=== PATIENT | male | born 1960 | race Hispanic/Latino ===

== ENCOUNTER 2018-06-08 14:13 | Outpatient (CLI) | payer BC ==
--- NOTE | 2018-06-08 15:44 | RAD ---
PA AND LATERAL CHEST: HISTORY: Moderate, persistent reactive airways disease, with acute exacerbation. FINDINGS: The heart size is normal. No lobar consolidation, pneumothoraces, orly pulmonary edema, or pleural effusions are seen. There are degenerative changes of the spine. IMPRESSION: No radiographic evidence of acute cardiopulmonary process. POS: [facility]
--- NOTE | 2018-06-08 15:47 | RAD ---
SINUSES THREE VIEWS: HISTORY: Paranasal sinusitis. FINDINGS: The visualized paranasal sinuses are well aerated. No air-fluid levels are seen. POS: [facility]
== END 2018-06-08 14:14 | disposition home or self-care (01) ==
LOC: BICRAD 14:13
PROVIDERS: ATTEND Family Medicine
DX: J45.41 Moderate persistent asthma with (acute) exacerbation (principal)
CPT/HCPCS: 70220; 71046